=== PATIENT | female | born 1980 | race American Indian/Alaskan Native ===

== ENCOUNTER 2018-05-23 18:46 | Inpatient (IN) | payer OTHER ==
--- NOTE | 2018-05-23 18:57 | Emergency Department Report ---
Blank Doc - Documentation Documentation: This is a 37-year-old female that presents with fluttering in her chest with s hortness of breathe. PMH: HTN This initial assessment diagnostic orders/clinical plan/treatment(s) is/are subject to change based on patient's health status, clinical progression and re-assessment by fellow clinical providers in the ED. Further treatment and workup at subsequent clinical providers discretion. Patient/guardians urged not to elope from ED s their condition may be serious if not clinically assessed and managed. Initial orders include: 1-Patient sent to MAIN ED for further evaluation and treatment 2- Labs 3- EKG
[2018-05-23 19:34] LABS: Basophils # (Auto) 0.1 K/mm3 (0.0-0.1); Basophils % (Auto) 0.9 % (0.0-1.8); Eosinophils # (Auto) 0.3 K/mm3 (0.0-0.4); Eosinophils % (Auto) 4.4 % (0.0-4.3); Hematocrit 31.5 % (30.3-42.9); Hemoglobin 10.4 gm/dl (10.1-14.3); Lymphocytes # (Auto) 2.1 K/mm3 (1.2-5.4); Lymphocytes % (Auto) 36.8 % (13.4-35.0); Mean Corpuscular HGB Conc 33 % (30-34); Mean Corpuscular Volume 73 fl (79-97); Monocytes # (Auto) 0.3 K/mm3 (0.0-0.8); Monocytes % (Auto) 5.6 % (0.0-7.3); Platelet Count 379 K/mm3 (140-440); Red Blood Count 4.31 M/mm3 (3.65-5.03); Red Cell Distribution Width 18.6 % (13.2-15.2)
[2018-05-23 19:38] LABS: INR 0.89 (0.87-1.13)
[2018-05-23 19:39] LABS: Partial Thromboplastin Time 28.1 Sec. (24.2-36.6)
[2018-05-23] MEDS ORDERED: NORMODYNE IV ONE (19:46)
[2018-05-23 19:52] LABS: Albumin 3.5 g/dL (3.9-5); BUN/Creatinine Ratio 20; Blood Urea Nitrogen 10 mg/dL (7-17); Calcium 9.3 mg/dL (8.4-10.2); Hemolysis Index 12
--- NOTE | 2018-05-23 19:53 | Emergency Department Report ---
ED Chest Pain HPI - General Chief Complaint: Chest Pain Stated Complaint: FLUTTERING IN CHEST/SOB/DIZZINESS Time Seen by Provider: 05/23/18 18:46 Source: patient Mode of arrival: Ambulatory Limitations: No Limitations - History of Present Illness Initial Comments: 37-year-old female presents to the emergency department with a complaint of shortness of breath, fluttering/palpitations and some chest tightness has been going on since this morning. Patient says that it started off feeling like "I had butterflies in my chest." She denies any fever, nausea, vomiting, back pain or diaphoresis. She took a Goody[employer] powder for her symptoms without much relief. She is a tobacco smoker. No recent travel or sick contacts at home. She has a past medical history of diabetes. She says she has a history of borderline hypertension but does present with extremely elevated blood pressure through triage. Severity scale (0 -10): 0 - Related Data Home Medications Medication Instructions Recorded Confirmed Last Taken No Known Home Medications [No 05/23/18 05/23/18 Unknown Reported Home Medications] Allergies Allergy/AdvReac Type Severity Reaction Status Date / Time No Known Allergies Allergy Unverified 05/23/18 18:49 Heart Score - HEART Score History: Slightly suspicious EKG: Normal Age: < 45 Risk factors: 1-2 risk factors Troponin: < normal limit HEART Score: 1 - Critical Actions Critical Actions: 0-3 pts:0.9-1.7%risk of adverse cardiac event.Candidate for discharge ED Review of Systems ROS: Stated complaint: FLUTTERING IN CHEST/SOB/DIZZINESS Other details as noted in HPI Comment: All other systems reviewed and negative Constitutional: denies: chills, fever Eyes: denies: eye pain, vision change ENT: denies: ear pain, throat pain Respiratory: shortness of breath. denies: cough Cardiovascular: chest pain, palpitations Gastrointestinal: denies: abdominal pain, vomiting Genitourinary: denies: dysuria, discharge Musculoskeletal: denies: back pain, arthralgia Skin: denies: rash, lesions Neurological: denies: headache, weakness ED Past Medical Hx - Past Medical History Previous Medical History?: Yes Hx Diabetes: Yes - Surgical History Past Surgical History?: No - Social History Smoking Status: Current Every Day Smoker Substance Use Type: None - Medications Home Medications: Home Medications Medication Instructions Recorded Confirmed Last Taken Type No Known Home Medications [No 05/23/18 05/23/18 Unknown History Reported Home Medications] ED Physical Exam - General Limitations: No Limitations - Other Other exam information: GENERAL: The patient is well-developed well-nourished. HEENT: Normocephalic. Atraumatic. Patient has moist mucous membranes. EYES: Extraocular motions are intact. Pupils are equal and reactive to light bilaterally. NECK: Supple. Trachea is midline. CHEST/LUNGS: Clear to auscultation. There is no respiratory distress noted. HEART/CARDIOVASCULAR: Regular. There is mild tachycardia. There is no obvious murmur. ABDOMEN: Abdomen is soft, nontender. Patient has normal bowel sounds. There is no abdominal distention. SKIN: Skin is warm and dry. NEURO: The patient is awake, alert, and oriented. The patient is cooperative. The patient has no focal neurologic deficits. The patient has normal speech. MUSCULOSKELETAL: There is no tenderness or deformity. There is no limitation range of motion. There is no evidence of acute injury. ED Course Vital Signs 05/23/18 05/23/18 05/23/18 18:58 19:23 19:39 Temperature 99.2 F Pulse Rate 112 H Respiratory 18 Rate Blood Pressure 175/98 140/64 Blood Pressure 210/102 [Left] O2 Sat by Pulse 100 Oximetry 05/23/18 05/23/18 05/23/18 19:47 20:01 20:15 Temperature Pulse Rate 100 H 95 H 102 H Respiratory 17 17 12 Rate Blood Pressure 140/64 134/61 134/61 Blood Pressure [Left] O2 Sat by Pulse 100 98 Oximetry 05/23/18 05/23/18 05/23/18 20:31 20:45 21:00 Temperature Pulse Rate 93 H 102 H 106 H Respiratory 16 13 22 Rate Blood Pressure 134/61 139/76 139/76 Blood Pressure [Left] O2 Sat by Pulse 100 100 Oximetry 05/23/18 05/23/18 05/23/18 21:18 21:31 21:45 Temperature Pulse Rate 111 H 105 H Respiratory 17 24 Rate Blood Pressure 139/76 139/76 139/76 Blood Pressure [Left] O2 Sat by Pulse 100 100 Oximetry 05/23/18 05/23/18 05/23/18 22:01 22:15 22:31 Temperature Pulse Rate 96 H 88 98 H Respiratory 16 13 12 Rate Blood Pressure 139/76 155/89 155/89 Blood Pressure [Left] O2 Sat by Pulse 100 99 98 Oximetry 05/23/18 05/23/18 22:45 23:01 Temperature Pulse Rate 103 H 93 H Respiratory 13 18 Rate Blood Pressure 155/89 155/89 Blood Pressure [Left] O2 Sat by Pulse 100 100 Oximetry CAREN score - Caren Score Age > 65: (0) No Aspirin use within the Past 7 Days: (1) Yes 3 or more CAD Risk Factors: (0) No 2 or more Angina events in past 24 hrs: (1) Yes Known CAD with more than 50% Stenosis: (0) No Elevated Cardiac Markers: (0) No ST Deviation Greater than 0.5mm: (0) No CAREN Score: 2 ED Medical Decision Making - Lab Data Result diagrams: 05/23/18 19:02 05/23/18 19:02 - EKG Data -: EKG Interpreted by Me EKG shows normal: sinus rhythm, axis, intervals, QRS complexes, ST-T waves Rate: tachycardia (103 bpm) - EKG Data When compared to previous EKG there are: previous EKG unavailable Interpretation: normal EKG - Radiology Data Radiology results: report reviewed, image reviewed interpreted by me: Chest x-ray does not show any pneumothorax, pleural effusion, pneumonia or obvious focal consolidation. PROCEDURE: CT ANGIO CHEST TECHNIQUE: Computerized axial tomographic angiography of the chest and pulmonary arteries was performed after the IV injection of iodinated nonionic contrast. The image data was postprocessed using maximum intensity projection (MIP) and 2-dimensional multiplanar reformatted (MPR) techniques. The examination is specifically tailored to the evaluation of the pulmonary arteries per clinical request. HISTORY: Short of breath 786.09, chest pain 786.50, SOB, CP, elevated dimer COMPARISON: No prior studies are available for comparison. FINDINGS: Heart and pericardium: Normal. Thoracic aorta: Normal. Pulmonary vasculature: Normal. No pulmonary emboli. Lymph nodes: No enlarged thoracic lymph nodes. Lungs: Normal. Pleural space: No effusion, thickening, or pneumothorax. Musculoskeletal structures: No significant abnormality. Upper abdominal structures: No significant abnormality. IMPRESSION: Normal Examination. There is no pulmonary embolism. Transcribed By: CO Dictated By: ANALI RAGLAND MD Electronically Authenticated By: ANALI RAGLAND MD Signed Date/Time: 05/23/18 1946 - Medical Decision Making Patient presents to the emergency department with complaint of some midsternal chest pain, palpitations and shortness of breath. EKG does not show any signs of ST elevation AK or dysrhythmia. Patient does present with extremely elevated blood pressure with a systolic of greater than 200. Patient's labs are mostly unremarkable except for hyperglycemia with a blood sugar of about 450 and the patient had an elevated d-dimer. There is no elevation in her anion gap and urinalysis does not show any ketones and therefore patient is low suspicion for diabetic ketoacidosis. She was given a dose of IV insulin and her blood sugar came down to about 180. So far the patient has had negative troponins 2. Secondary to the elevated d-dimer level, a CT angiography of the chest was done that does not show any signs of any pulmonary embolism, dissection or any other acute process. The patient's symptoms have improved but she still complains of some mild chest tightness and the palpitations. For these reasons the patient will be admitted to the hospital for further evaluation and treatment was accepted for admission by the hospitalist, Dr. Parada. - Differential Diagnosis AK, PE, costochondritis, dysrhythmia Critical Care Time: No Critical care attestation.: If time is entered above; I have spent that time in minutes in the direct care of this critically ill patient, excluding procedure time. ED Disposition Clinical Impression: Hypertensive urgency, Palpitations Uncontrolled diabetes mellitus Qualifiers: Diabetes mellitus type: type 2 Glycemic state: with hyperglycemia Qualified Code(s): E11.65 - Type 2 diabetes mellitus with hyperglycemia Chest pain Qualifiers: Chest pain type: unspecified Qualified Code(s): R07.9 - Chest pain, unspecified Disposition: OP ADMIT IP TO THIS HOSP Is pt being admited?: Yes Condition: Fair Instructions: Diabetes Mellitus Type 2 in Adults (ED), Chest Pain (ED) Referrals: ANUPAMA COOPER MD [Primary Care Provider] - 3-5 Days Time of Disposition: 23:42
[2018-05-23] MEDS ORDERED: HumuLIN R IV ONE (20:01)
[2018-05-23 20:13] LABS: Alanine Aminotransferase < 5 units/L (7-56)
[2018-05-23 20:47] LABS: Bilirubin,Urine NEG (Negative); Blood,Urine NEG (Negative); Color,Urine Yellow (Yellow); Urobilinogen,Urine < 2.0 mg/dL (<2.0)
--- NOTE | 2018-05-23 21:31 | XRay Report ---
FINAL REPORT PROCEDURE: Chest. TECHNIQUE: PA and lateral views. HISTORY: Chest pain. COMPARISON: No prior studies are available for comparison. FINDINGS: The heart and mediastinum appear normal. The lungs are clear and well expanded. There are no pleural effusions. The soft tissues and regional skeleton are unremarkable. IMPRESSION: Normal study.
--- NOTE | 2018-05-23 22:15 | Cat Scan Report ---
FINAL REPORT PROCEDURE: CT ANGIO CHEST TECHNIQUE: Computerized axial tomographic angiography of the chest and pulmonary arteries was perfor med after the IV injection of iodinated nonionic contrast. The image data was postprocessed using max imum intensity projection (MIP) and 2-dimensional multiplanar reformatted (MPR) techniques. The exami nation is specifically tailored to the evaluation of the pulmonary arteries per clinical request. HISTORY: Short of breath 786.09, chest pain 786.50, SOB, CP, elevated dimer COMPARISON: No prior studies are available for comparison. FINDINGS: Heart and pericardium: Normal. Thoracic aorta: Normal. Pulmonary vasculature: Normal. No pulmonary emboli. Lymph nodes: No enlarged thoracic lymph nodes. Lungs: Normal. Pleural space: No effusion, thickening, or pneumothorax. Musculoskeletal structures: No significant abnormality. Upper abdominal structures: No significant abnormality. IMPRESSION: Normal Examination. There is no pulmonary embolism.
[2018-05-23] MEDS ORDERED: NACL 0.9% 1000 ML 1,000 ML IV ONE (22:29)
--- NOTE | 2018-05-23 23:45 | History and Physical Report ---
History of Present Illness Date of examination: 05/23/18 History of present illness: 37-year-old woman with a history of borderline hypertension, diabetes, noncompliant with medication. Last 6 months comes emergency room with complaints of chest pain and palpitation. She states she started having fluttering in her chest and chest pain started today, symptoms have been intermittent, she is on sale long it lasts for, intensity 5/10, no radiation, cannot identify exacerbating or relieving factors. Admits to shortness of breath, no nausea vomiting, diaphoresis Review of systems Constitutional: no weight loss, chills, fever Ears, eyes, nose, mouth and throat: no nasal congestion, no nasal discharge, no sinus pressure, no vision change, no red eye. Neck: No neck pain or rigidity. Cardiovascular: + palpitations, chest pain Respiratory: no cough, shortness of breath Gastrointestinal: no hematochezia, abdominal pain Genitourinary : no frequency , no hematuria Musculoskeletal: no joint swelling or muscle ache Integumentary: no rash, no pruritis Neurological: no parathesias, no focal weakness Endocrine: no cold or heat intolerance, no polyuria or polydipsia Hematologic/Lymphatic: no easy bruising, no easy bleeding, no gland swelling Allergic/Immunologic: no urticaria, no angioedema. PAST MEDICAL HISTORY: borderline hypertension, diabetes PAST SURGICAL HISTORY: None SOCIAL HISTORY: + alcohol, no drugs, smoke 5 cigarettes a day FAMILY HISTORY: Hypertension Medications and Allergies Allergies Allergy/AdvReac Type Severity Reaction Status Date / Time No Known Allergies Allergy Unverified 05/23/18 18:49 Home Medications Medication Instructions Recorded Confirmed Last Taken Type No Known Home Medications [No 05/23/18 05/23/18 Unknown History Reported Home Medications] Exam - Physical Exam Narrative exam: General Apperance: The patient lying in bed, breathing comfortable HEENT: Normocephalic, atraumatic. Pupils equally round and reactive to light, EOMI, no sclericterus or JVD or thyromegaly or nodule. , no carotid bruit, mucous membranes moist, no exudate or erythema Heart: S1-S2, regular is rhythm Lungs: Clear to auscultation bilaterally, breathing comfortable Abdomen: Positive bowel sounds, soft, nontender, nondistended, no organomegaly Extremities: No edema cyanosis clubbing Skin: no rash, nodule, warm and dry Neuro: cranial nerves 2-12 intact, speech is fluent, motor/sensory intact - Constitutional Vitals: Temp Pulse Resp BP Pulse Ox 99.2 F 93 H 18 155/89 100 05/23/18 18:58 05/23/18 23:01 05/23/18 23:01 05/23/18 23:01 05/23/18 23:01 Results - Labs CBC & Chem 7: 05/23/18 19:02 05/23/18 19:02 Labs: Abnormal lab results 05/23/18 05/23/18 05/23/18 Range/Units 19:02 19:02 19:02 MCV 73 L (79-97) fl MCH 24 L (28-32) pg RDW 18.6 H (13.2-15.2) % Lymph % (Auto) 36.8 H (13.4-35.0) % Eos % (Auto) 4.4 H (0.0-4.3) % D-Dimer 257.73 H (0-234) ng/mlDDU Sodium 132 L (137-145) mmol/L Chloride 94.7 L (98-107) mmol/L Creatinine 0.5 L (0.7-1.2) mg/dL Glucose 446 H (65-100) mg/dL POC Glucose (70-105) AST < 5 L (5-40) units/L ALT < 5 L (7-56) units/L Albumin 3.5 L (3.9-5) g/dL 05/23/18 05/23/18 Range/Units 21:21 23:03 MCV (79-97) fl MCH (28-32) pg RDW (13.2-15.2) % Lymph % (Auto) (13.4-35.0) % Eos % (Auto) (0.0-4.3) % D-Dimer (0-234) ng/mlDDU Sodium (137-145) mmol/L Chloride (98-107) mmol/L Creatinine (0.7-1.2) mg/dL Glucose (65-100) mg/dL POC Glucose 185 H 214 H (70-105) AST (5-40) units/L ALT (7-56) units/L Albumin (3.9-5) g/dL - Imaging and Cardiology EKG: image reviewed Chest x-ray: report reviewed CT scan - chest: report reviewed Assessment and Plan Assessment Hypertensive urgency Chest pain/palpitations Diabetes uncontrolled Noncompliant Plan Admit to medicine Check cardiac enzymes, stress test Start lisinopril, aspirin, DVT prophalaxis
[2018-05-23] MEDS ORDERED: D50W (25GM) Syringe IV PRN (23:50)
[2018-05-23] MEDS ORDERED: ZOFRAN IV PRN (23:50)
[2018-05-23] MEDS ORDERED: MORPHINE IV PRN (23:50)
[2018-05-23] MEDS ORDERED: SODIUM CHLORIDE FLUSH SYRINGE 10 ML IV PRN (23:50)
[2018-05-23] MEDS ORDERED: TYLENOL PO PRN (23:50)
[2018-05-24] MEDS ORDERED: NORMODYNE IV PRN (00:14)
[2018-05-24 00:22] LABS: Creatine Kinase MB 1.5 ng/mL (0.0-4.0)
[2018-05-24] MEDS ORDERED: ZESTRIL ONE (00:29)
[2018-05-24] MEDS: ZESTRIL PO SCH ×4 (00:31→18:54)
[2018-05-24 05:40] LABS: Basophils % (Auto) 0.8 % (0.0-1.8); Eosinophils # (Auto) 0.3 K/mm3 (0.0-0.4); Eosinophils % (Auto) 4.9 % (0.0-4.3); Hematocrit 28.4 % (30.3-42.9); Lymphocytes # (Auto) 2.2 K/mm3 (1.2-5.4); Lymphocytes % (Auto) 41.1 % (13.4-35.0); Mean Corpuscular HGB Conc 32 % (30-34); Mean Corpuscular Volume 75 fl (79-97); Monocytes # (Auto) 0.3 K/mm3 (0.0-0.8); Monocytes % (Auto) 6.1 % (0.0-7.3); Platelet Count 294 K/mm3 (140-440); Red Cell Distribution Width 18.2 % (13.2-15.2)
[2018-05-24 05:48] LABS: Creatine Kinase MB 1.4 ng/mL (0.0-4.0)
[2018-05-24 05:58] LABS: BUN/Creatinine Ratio 22; Blood Urea Nitrogen 11 mg/dL (7-17); Calcium 8.6 mg/dL (8.4-10.2); Hemolysis Index 16
[2018-05-24] MEDS: HumaLOG SUB-Q SCH ×4 (09:35→21:33)
[2018-05-24] MEDS: LOVENOX SUB-Q SCH (16:30)
[2018-05-24] MEDS: SODIUM CHLORIDE FLUSH SYRINGE 10 ML IV SCH ×2 (16:32→21:35)
--- NOTE | 2018-05-24 16:39 | Treadmill Report ---
The patient exercised for 6 minutes of a Vitaliy protocol, completing stage 2 and achieving 7 mets. Peak heart rate was 158 beats per minute. Peak blood pressure was 150/95. There was no chest pain. Test was stopped for fatigue. Baseline ECG was sinus rhythm. With exercise, there were no ST changes of ischemia. No significant dysrhythmias were noted. CONCLUSION: 1. Average exercise capacity. 2. No chest pain with exercise. 3. No ST changes of ischemia. 4. No significant dysrhythmias. This is a negative exercise ECG test and I have spoken with the patient. JOB# [id number] CA/NTS
[2018-05-24] MEDS ORDERED: ZESTRIL PO SCH (17:38)
--- NOTE | 2018-05-24 17:44 | Progress Note ---
Subjective Date of service: 05/24/18 Interval history: 37-year-old Mrs. Pollard admitted for hypertensive urgency and chest pain. She is alert and oriented presently complains of headache She denies any chest pain shortness of breath or palpitations, complaints of heart fluttering off-and-on Chart reviewed Assessment and plan Chest pain: WI ruled out She stress test results reviewed Normal stress thallium Hypertensive urgency: Improving Increase lisinopril to 10 mg Check TSH as the patient is complaining of fluttering Uncontrolled type 2 diabetes Start the patient on metformin and glimepiride and continue insulin sliding scale coverage Microcytic anemia-likely iron deficiency anemia Check stool for occult blood Check ferritin and iron I had extensive discussion with the patient regarding dangers of uncontrolled diabetes and hypertension Objective HEENT: Normocephalic pupils are round reacting to light throat is clear Neck supple no significant adenopathy no thyromegaly Lungs clear to auscultation Heart S1-S2 regular rate and rhythm Abdomen is soft nontender no hepatosplenomegaly Extremities there is no leg edema [employer] patient is alert and oriented 3 no focal deficit Psychiatry normal mood and affect Objective - Constitutional Vitals: Vital Signs - 12hr 05/24/18 05/24/18 05/24/18 10:59 12:38 13:40 Temperature 98.9 F Pulse Rate 85 Respiratory 20 Rate Blood Pressure 138/74 128/78 197/90 O2 Sat by Pulse 99 Oximetry 05/24/18 05/24/18 05/24/18 13:41 13:42 13:43 Temperature Pulse Rate Respiratory Rate Blood Pressure 182/92 165/86 157/87 O2 Sat by Pulse Oximetry 05/24/18 05/24/18 05/24/18 16:31 16:37 16:39 Temperature 99.1 F Pulse Rate 95 H Respiratory 20 Rate Blood Pressure 157/87 147/77 O2 Sat by Pulse 98 Oximetry - Labs CBC & Chem 7: 05/24/18 04:49 05/24/18 04:49 Labs: Abnormal lab results 05/23/18 05/23/18 05/23/18 Range/Units 19:02 19:02 19:02 Hgb (10.1-14.3) gm/dl Hct (30.3-42.9) % MCV 73 L (79-97) fl MCH 24 L (28-32) pg RDW 18.6 H (13.2-15.2) % Lymph % (Auto) 36.8 H (13.4-35.0) % Eos % (Auto) 4.4 H (0.0-4.3) % D-Dimer 257.73 H (0-234) ng/mlDDU Sodium 132 L (137-145) mmol/L Chloride 94.7 L (98-107) mmol/L Creatinine 0.5 L (0.7-1.2) mg/dL Glucose 446 H (65-100) mg/dL POC Glucose (70-105) AST < 5 L (5-40) units/L ALT < 5 L (7-56) units/L Total Creatine Kinase (30-135) units/L Albumin 3.5 L (3.9-5) g/dL 05/23/18 05/23/18 05/23/18 Range/Units 21:21 23:03 23:58 Hgb (10.1-14.3) gm/dl Hct (30.3-42.9) % MCV (79-97) fl MCH (28-32) pg RDW (13.2-15.2) % Lymph % (Auto) (13.4-35.0) % Eos % (Auto) (0.0-4.3) % D-Dimer (0-234) ng/mlDDU Sodium (137-145) mmol/L Chloride (98-107) mmol/L Creatinine (0.7-1.2) mg/dL Glucose (65-100) mg/dL POC Glucose 185 H 214 H (70-105) AST (5-40) units/L ALT (7-56) units/L Total Creatine Kinase 206 H (30-135) units/L Albumin (3.9-5) g/dL 05/24/18 05/24/18 05/24/18 Range/Units 04:49 04:49 04:49 Hgb 9.0 L (10.1-14.3) gm/dl Hct 28.4 L (30.3-42.9) % MCV 75 L (79-97) fl MCH 24 L (28-32) pg RDW 18.2 H (13.2-15.2) % Lymph % (Auto) 41.1 H (13.4-35.0) % Eos % (Auto) 4.9 H (0.0-4.3) % D-Dimer (0-234) ng/mlDDU Sodium 134 L (137-145) mmol/L Chloride (98-107) mmol/L Creatinine 0.5 L (0.7-1.2) mg/dL Glucose 291 H (65-100) mg/dL POC Glucose (70-105) AST (5-40) units/L ALT (7-56) units/L Total Creatine Kinase 192 H (30-135) units/L Albumin (3.9-5) g/dL 05/24/18 05/24/18 Range/Units 09:36 16:38 Hgb (10.1-14.3) gm/dl Hct (30.3-42.9) % MCV (79-97) fl MCH (28-32) pg RDW (13.2-15.2) % Lymph % (Auto) (13.4-35.0) % Eos % (Auto) (0.0-4.3) % D-Dimer (0-234) ng/mlDDU Sodium (137-145) mmol/L Chloride (98-107) mmol/L Creatinine (0.7-1.2) mg/dL Glucose (65-100) mg/dL POC Glucose 249 H 323 H (70-105) AST (5-40) units/L ALT (7-56) units/L Total Creatine Kinase (30-135) units/L Albumin (3.9-5) g/dL
[2018-05-24] MEDS: AMARYL PO SCH (18:55)
[2018-05-25 01:18] LABS: Iron 34 ug/dL (37-170)
[2018-05-25 01:19] LABS: Total Iron Binding Capacity 326 mcg/dL (250-450)
[2018-05-25] MEDS: HumaLOG SUB-Q SCH ×4 (08:53→21:39)
[2018-05-25] MEDS: GLUCOPHAGE PO SCH ×2 (08:53→18:10)
[2018-05-25] MEDS: AMARYL PO SCH (08:53)
[2018-05-25] MEDS: LOVENOX SUB-Q SCH (10:25)
[2018-05-25] MEDS: ZESTRIL PO SCH (10:25)
--- NOTE | 2018-05-25 18:41 | Progress Note ---
Assessment and Plan Assessment and plan: 37-year-old Mrs. Pollard admitted for hypertensive urgency and chest pain. She is alert and oriented presently complains of headache She denies any chest pain shortness of breath or palpitations, complaints of heart fluttering off-and-on Chart reviewed Assessment and plan Chest pain: AK ruled out She stress test results reviewed Normal stress thallium Hypertensive urgency:well controlled cont current antihypertensives and PRN meds Uncontrolled type 2 diabetes cont. metformin and glimepiride and continue SSC Microcytic anemia-likely iron deficiency anemia Check stool for occult blood Check ferritin and iron advised to comply with meds and diet possible dc in 1-2 days if stable History Interval history: Patient seen and examined medical records reviewed No new events reported by the nursing Patient denies chest pain or shortness of breath Stress test negative However blood sugars are uncontrolled Hospitalist Physical - Constitutional Vitals: Temp Pulse Resp BP Pulse Ox 98.5 F 89 19 154/62 99 05/25/18 15:18 05/25/18 15:18 05/25/18 15:18 05/25/18 15:18 05/25/18 15:18 General appearance: Present: no acute distress, well-nourished - EENT Eyes: Present: PERRL, EOM intact - Neck Neck: Present: supple, enlarged thyroid - Respiratory Respiratory effort: normal, labored Respiratory: bilateral: diminished, negative: rales, rhonchi, wheezing - Cardiovascular Rhythm: regular Heart Sounds: Present: S1 & S2 - Extremities Extremities: no ischemia, No edema - Abdominal General gastrointestinal: soft, non-tender, non-distended, normal bowel sounds - Integumentary Integumentary: Present: clear, warm - Psychiatric Psychiatric: appropriate mood/affect, cooperative - Neurologic Neurologic: CNII-XII intact, moves all extremities Results - Labs CBC & Chem 7: 05/24/18 04:49 05/24/18 04:49 Labs: Laboratory Last Values WBC 5.3 K/mm3 (4.5-11.0) 05/24/18 04:49 RBC 3.80 M/mm3 (3.65-5.03) 05/24/18 04:49 Hgb 9.0 gm/dl (10.1-14.3) L 05/24/18 04:49 Hct 28.4 % (30.3-42.9) L 05/24/18 04:49 MCV 75 fl (79-97) L 05/24/18 04:49 MCH 24 pg (28-32) L 05/24/18 04:49 MCHC 32 % (30-34) 05/24/18 04:49 RDW 18.2 % (13.2-15.2) H 05/24/18 04:49 Plt Count 294 K/mm3 (140-440) 05/24/18 04:49 Lymph % (Auto) 41.1 % (13.4-35.0) H 05/24/18 04:49 [place] % (Auto) 6.1 % (0.0-7.3) 05/24/18 04:49 Eos % (Auto) 4.9 % (0.0-4.3) H 05/24/18 04:49 Baso % (Auto) 0.8 % (0.0-1.8) 05/24/18 04:49 Lymph # 2.2 K/mm3 (1.2-5.4) 05/24/18 04:49 [place] # 0.3 K/mm3 (0.0-0.8) 05/24/18 04:49 Eos # 0.3 K/mm3 (0.0-0.4) 05/24/18 04:49 Baso # 0.0 K/mm3 (0.0-0.1) 05/24/18 04:49 Seg Neutrophils % 47.1 % (40.0-70.0) 05/24/18 04:49 Seg Neutrophils # 2.5 K/mm3 (1.8-7.7) 05/24/18 04:49 PT 12.6 Sec. (12.2-14.9) 05/23/18 19:02 INR 0.89 (0.87-1.13) 05/23/18 19:02 APTT 28.1 Sec. (24.2-36.6) 05/23/18 19:02 D-Dimer 257.73 ng/mlDDU (0-234) H 05/23/18 19:02 Sodium 134 mmol/L (137-145) L 05/24/18 04:49 Potassium 4.3 mmol/L (3.6-5.0) 05/24/18 04:49 Chloride 101.9 mmol/L (98-107) 05/24/18 04:49 Carbon Dioxide 22 mmol/L (22-30) 05/24/18 04:49 Anion Gap 14 mmol/L 05/24/18 04:49 BUN 11 mg/dL (7-17) 05/24/18 04:49 Creatinine 0.5 mg/dL (0.7-1.2) L 05/24/18 04:49 Estimated GFR > 60 ml/min 05/24/18 04:49 BUN/Creatinine Ratio 22 % 05/24/18 04:49 Glucose 291 mg/dL (65-100) H 05/24/18 04:49 POC Glucose 111 (70-105) H 05/25/18 16:21 Calcium 8.6 mg/dL (8.4-10.2) 05/24/18 04:49 Iron 34 ug/dL (37-170) L 05/24/18 22:32 TIBC 326 mcg/dL (250-450) 05/24/18 22:32 Ferritin 6.4 ng/mL (13.0-400.0) L 05/24/18 22:32 Total Bilirubin < 0.20 mg/dL (0.1-1.2) 05/23/18 19:02 AST < 5 units/L (5-40) L 05/23/18 19:02 ALT < 5 units/L (7-56) L 05/23/18 19:02 Alkaline Phosphatase 86 units/L (35-129) 05/23/18 19:02 Total Creatine Kinase 192 units/L (30-135) H 05/24/18 04:49 CK-MB (CK-2) 1.4 ng/mL (0.0-4.0) 05/24/18 04:49 CK-MB (CK-2) Rel Index 0.7 (0-4) 05/24/18 04:49 Troponin T < 0.010 ng/mL (0.00-0.029) 05/24/18 04:49 Total Protein 7.6 g/dL (6.3-8.2) 05/23/18 19:02 Albumin 3.5 g/dL (3.9-5) L 05/23/18 19:02 Albumin/Globulin Ratio 0.9 % 05/23/18 19:02 TSH 0.933 mlU/mL (0.270-4.200) 05/24/18 22:32 HCG, Qual Negative (Negative) 05/23/18 19: Urine Color Yellow (Yellow) 05/23/18 20: Urine Turbidity Clear (Clear) 05/23/18: Urine pH 6.0 (5.0-7.0) 05/23/18: Ur Specific [place] 1.029 (1.003-1.030) 05/23/18: Urine Protein 100 mg/dl mg/dL (Negative) 05/23/18: Urine Glucose (UA) >=500 mg/dL (Negative) 05/23/18: Urine Ketones Neg mg/dL (Negative) 05/23/18: Urine Blood Neg (Negative) 05/23/18 20: Urine Nitrite Neg (Negative) 05/23/18: Urine Bilirubin Neg (Negative) 05/23/18: Urine Urobilinogen < 2.0 mg/dL (<2.0) 05/23/18 20: Ur Leukocyte Esterase Neg (Negative) 05/23/18 20: Urine WBC (Auto) 2.0 /HPF (0.0-6.0) 05/23/18: Urine RBC (Auto) 1.0 /HPF (0.0-6.0) 05/23/18: U Epithel Cells (Auto) 7.0 /HPF (0-13.0) 05/23/18
[2018-05-26 05:00] VITALS: BP 130/69
[2018-05-26] MEDS: AMARYL PO SCH (09:26)
[2018-05-26] MEDS: ZESTRIL PO SCH (09:26)
[2018-05-26] MEDS: GLUCOPHAGE PO SCH (09:26)
[2018-05-26] MEDS: LOVENOX SUB-Q SCH (09:27)
[2018-05-26] MEDS: HumaLOG SUB-Q SCH ×2 (09:27→12:04)
[2018-05-26] MEDS: SODIUM CHLORIDE FLUSH SYRINGE 10 ML IV SCH ×2 (09:30→12:59)
--- NOTE | 2018-05-26 11:22 | Discharge Summary ---
Providers - Providers Date of Admission: 05/23/18 23:50 Date of discharge: 05/26/18 Attending physician: JESSE SANTIAGO Primary care physician: [facility], Hospitalization Reason for admission: chest pain and hypertensive urgency Condition: Stable Pertinent studies: CTA chest; no PE Stress test; negative for reversible ischemia No arrhythmia Hospital course: 37-year-old female patient with significant history of hypertension diabetes was admitted through emergency room with chest pain and palpitation, she will also noted to have hypertensive urgency Managed with multiple antihypertensiveS, pressures brought to reasonable level. Patient was evaluated admitted to the hospital , symptomatically managed, CTA chest was negative for PE, Stress test negative for ischemia, Symptoms significantly improved, Today patient is comfortable in no new complaints Vital signs stable, Physical exam is unremarkable Patient is hemodynamically and clinically stable at discharge Discharge diagnosis; --Chest pain: KS ruled out Stress test negative --Hypertensive urgency:well controlled cont current antihypertensives and PRN meds --Uncontrolled type 2 diabetes cont. metformin and glimepiride and continue SSC --Microcytic anemia-likely iron deficiency anemia Advised to see LEATHER [employer] I ASSEMBLER/GI for further evaluation and management advised to comply with meds and diet Stable at discharge Disposition: DC-01 TO HOME OR SELFCARE Time spent for discharge: 32 min Core Measure Documentation - Palliative Care Palliative Care/ Comfort Measures: Not Applicable - Core Measures Any of the following diagnoses?: none Exam - Constitutional Vitals: Temp Pulse Resp BP Pulse Ox 98.4 F 88 14 130/69 98 05/26/18 04:03 05/26/18 04:03 05/26/18 04:03 05/26/18 04:03 05/26/18 08:55 General appearance: Present: no acute distress, well-nourished, obese - EENT Eyes: Present: PERRL, EOM intact - Neck Neck: Present: supple, normal ROM - Respiratory Respiratory effort: normal Respiratory: negative: rales, rhonchi, wheezing - Cardiovascular Rhythm: regular Heart Sounds: Present: S1 & S2 - Extremities Extremities: no ischemia, No edema - Abdominal General gastrointestinal: Present: soft, non-tender, non-distended, normal bowel sounds - Integumentary Integumentary: Present: clear, warm - Musculoskeletal Musculoskeletal: strength equal bilaterally - Psychiatric Psychiatric: appropriate mood/affect, cooperative - Neurologic Neurologic: CNII-XII intact Plan Activity: no restrictions Diet: diabetic Additional Instructions: Advised to see a private straightedge worker in 1-2 weeks. Advice exercise as tolerated and weight reduction when stable Follow up with: ANUPAMA COOPER MD [Primary Care Provider] - 3-5 Days Prescriptions: Glimepiride [Amaryl] 2 mg PO QDDIAB #30 tablet Lisinopril [Zestril TAB] 10 mg PO QDAY #30 tablet metFORMIN [Glucophage] 500 mg PO BIDDIAB #60 tablet Other Discharge Orders: Glucometer (Amb) Location: None Selected Glucometer supplies[Amb] Location: None Selected
== END 2018-05-26 18:01 | disposition home or self-care (01) | DRG 305 ==
LOC: ED 18:46 → 4A 23:50
PROVIDERS: ADMIT Internal Medicine; ATTEND Internal Medicine
DX: I16.0 Hypertensive urgency (principal); R00.2 Palpitations; F17.210 Nicotine dependence, cigarettes, uncomplicated; R07.89 Other chest pain; E11.65 Type 2 diabetes mellitus with hyperglycemia; F17.200 Nicotine dependence, unspecified, uncomplicated; Z91.14 Patient's other noncompliance with medication regimen; Z82.49 Family history of ischemic heart disease and other diseases of the circulatory system
CPT/HCPCS: 36415; 71046; 71275; 80048; 80053; 81001; 82550; 82553; 82728; 82962; 83550; 84443; 84484; 84703; 85025; 85379; 85610; 85730; 93005; 93010; 93017; G0378; J1650; J1815; J7030; Q9967

== ENCOUNTER 2018-12-20 20:55 | Emergency (ER) | payer OTHER ==
--- NOTE | 2018-12-20 21:16 | Event Note ---
ED Screening Note ED Screening Note: pt states she has not had a BM states she has had a fecal impaction before abd discomfort attempted fleet enema states she began having N/V today LNMP: November 28 PMHx DM no allergies to meds This initial assessment/diagnostic orders/clinical plan/treatment(s) is/are subject to change based on patients health status, clinical progression and re- assessment by fellow clinical providers in the ED. Further treatment and workup at subsequent clinical providers discretion. Patient/guardian urged not to elope from the ED as their condition may be serious if not clinically assessed and managed. Initial orders include: labs, XR abdomen
[2018-12-20 21:51] LABS: Basophils # (Auto) 0.1 K/mm3 (0.0-0.1); Basophils % (Auto) 0.5 % (0.0-1.8); Eosinophils % (Auto) 0.4 % (0.0-4.3); Hematocrit 28.5 % (30.3-42.9); Hemoglobin 9.2 gm/dl (10.1-14.3); Lymphocytes # (Auto) 1.5 K/mm3 (1.2-5.4); Lymphocytes % (Auto) 14.4 % (13.4-35.0); Mean Corpuscular HGB Conc 32 % (30-34); Monocytes # (Auto) 0.4 K/mm3 (0.0-0.8); Monocytes % (Auto) 3.6 % (0.0-7.3); Platelet Count 383 K/mm3 (140-440); Red Blood Count 4.09 M/mm3 (3.65-5.03); Red Cell Distribution Width 19.2 % (13.2-15.2)
[2018-12-20 22:05] LABS: Mean Corpuscular Volume 70 fl (79-97)
[2018-12-20 22:13] LABS: Alanine Aminotransferase 13 units/L (7-56); Albumin 3.3 g/dL (3.9-5); BUN/Creatinine Ratio 20; Blood Urea Nitrogen 10 mg/dL (7-17); Calcium 8.6 mg/dL (8.4-10.2); Hemolysis Index 4
--- NOTE | 2018-12-20 23:02 | XRay Report ---
ABDOMEN 2 VIEW(S) INDICATION / CLINICAL INFORMATION: constipation. COMPARISON: None available. FINDINGS: TUBES / LINES: None. BOWEL GAS PATTERN/EXTRALUMINAL GAS: Large amount stool in the colon. No evidence of obstruction. No f ree air or pneumatosis identified ADDITIONAL FINDINGS: No significant additional findings. IMPRESSION: 1. Large amount stool in the colon. No appreciable obstruction or free air. Signer Name: Jf Jean MD Signed: 12/20/2018 10:58 PM Workstation Name: [id number]
[2018-12-21] MEDS ORDERED: ACETAMINOPHEN 325 MG TAB PO ONE (01:08)
[2018-12-21] MEDS ORDERED: MORPHINE 4 MG/1 ML INJ IV ONE (01:08)
[2018-12-21] MEDS ORDERED: ONDANSETRON 4 MG/2 ML INJ IV ONE (01:08)
[2018-12-21] MEDS ORDERED: SODIUM CHLORIDE 0.9% 1000 ML 2,000 ML IV ONE (01:08)
--- NOTE | 2018-12-21 01:09 | Emergency Department Report ---
ED General Adult HPI - General Chief complaint: Abdominal Pain Stated complaint: SHAKING, CANT USE THE RESTROOM, DIABETIC Time Seen by Provider: 12/20/18 21:14 Source: patient, RN notes reviewed Mode of arrival: Ambulatory Limitations: No Limitations - History of Present Illness Initial comments: This is a 38-year-old female. This patient is not known to this provider previously. The patient typically follows with the [facility] [place]. She has a past medical history of diabetes, hypertension and fecal impaction. Patient presents to the ER with a complaint of lower abdominal cramping, and sensation of fecal impaction. Positive shaking chills when she attempts to defecate. No documented fevers. No urinary symptoms. No sick contacts. She is attempted enemas [id number], which really haven't helped her out. In the ER, given Tylenol, fluids, pain medication, nausea medication and these improved her symptoms. -: Gradual, days(s) Location: pelvis Radiation: non-radiation Quality: other (cramping) Consistency: constant, now resolved Improves with: medication - Related Data Previous Rx's Medication Instructions Recorded Last Taken Type Glimepiride [Amaryl] 2 mg PO QDDIAB #30 tablet 05/26/18 Unknown Rx Lisinopril [Zestril TAB] 10 mg PO QDAY #30 tablet 05/26/18 Unknown Rx metFORMIN [Glucophage] 500 mg PO BIDDIAB #60 tablet 05/26/18 Unknown Rx Ondansetron [Zofran Odt] 4 mg PO Q8HR PRN #20 tab.rapdis 12/21/18 Unknown Rx Polyethylene Glycol 3350 [Miralax 17 gm PO QDAY #30 packet 12/21/18 Unknown Rx 3350] Allergies Allergy/AdvReac Type Severity Reaction Status Date / Time No Known Allergies Allergy Unverified 05/23/18 18:49 ED Review of Systems ROS: Stated complaint: SHAKING, CANT USE THE RESTROOM, DIABETIC Other details as noted in HPI Constitutional: chills, malaise Eyes: denies: eye discharge ENT: denies: epistaxis Respiratory: denies: wheezing Cardiovascular: denies: syncope Gastrointestinal: nausea, constipation Genitourinary: denies: dysuria Musculoskeletal: myalgia Skin: denies: lesions Neurological: weakness Psychiatric: anxiety ED Past Medical Hx - Past Medical History Hx Hypertension: Yes (leana no meds) Hx Diabetes: Yes - Social History Smoking Status: Never Smoker Substance Use Type: Alcohol - Medications Home Medications: Home Medications Medication Instructions Recorded Confirmed Last Taken Type Glimepiride [Amaryl] 2 mg PO QDDIAB #30 tablet 05/26/18 Unknown Rx Lisinopril [Zestril TAB] 10 mg PO QDAY #30 tablet 05/26/18 Unknown Rx metFORMIN [Glucophage] 500 mg PO BIDDIAB #60 tablet 05/26/18 Unknown Rx Ondansetron [Zofran Odt] 4 mg PO Q8HR PRN #20 tab.rapdis 12/21/18 Unknown Rx Polyethylene Glycol 3350 [Miralax 17 gm PO QDAY #30 packet 12/21/18 Unknown Rx 3350] ED Physical Exam - General Limitations: No Limitations General appearance: alert, anxious, obese - Head Head exam: Present: atraumatic, normocephalic - Eye Eye exam: Present: normal appearance, EOMI. Absent: nystagmus - ENT ENT exam: Present: normal exam, normal orophraynx, mucous membranes moist, normal external ear exam - Neck Neck exam: Present: normal inspection, full ROM. Absent: tenderness, meningismus - Respiratory Respiratory exam: Present: normal lung sounds bilaterally. Absent: respiratory distress - Cardiovascular Cardiovascular Exam: Present: normal rhythm, tachycardia, normal heart sounds. Absent: systolic murmur, diastolic murmur, rubs, gallop - GI/Abdominal GI/Abdominal exam: Present: soft. Absent: distended, tenderness, guarding, rigid, pulsatile mass - Extremities Exam Extremities exam: Present: normal inspection, full ROM, other (2+ pulses noted in the bilateral upper, lower extremities. Compartments soft. No long bony tenderness. The pelvis is stable.). Absent: pedal edema, joint swelling, calf tenderness - Back Exam Back exam: Present: normal inspection, full ROM. Absent: tenderness, CVA tenderness (R), CVA tenderness (L), paraspinal tenderness, vertebral tenderness - Neurological Exam Neurological exam: Present: alert, oriented X3, normal gait, other (Extraocular movements intact. Tongue midline. No facial droop. Facial sensation intact to light touch in the V1, V2, V3 distribution bilaterally. 5 and 5 strength in 4 extremities.. Sensation is intact to light touch in 4 extremities.). Absent: motor sensory deficit - Psychiatric Psychiatric exam: Present: anxious - Skin Skin exam: Present: warm, dry, intact, normal color. Absent: rash ED Course Vital Signs 12/20/18 12/21/18 21:14 03:12 Temperature 99 F Pulse Rate 115 H 93 H Respiratory 18 18 Rate Blood Pressure 160/91 Blood Pressure 143/89 [Right] O2 Sat by Pulse 100 98 Oximetry - Reevaluation(s) Reevaluation #1: 12/21/18 03:40 Differential diagnosis, including not limited to, constipation, obstruction, fecal impaction, obstipation Assessment and plan: 38-year-old female with history of a impaction, with probable recurrent constipation and fecal impaction. Had a low-grade temperature, initially tachycardic, this resolved, x-ray of the abdomen shows large stool volume, given low-grade temperature, CT scan of the abdomen and pelv is obtained to exclude emergent conditions. It is interpreted as negative. When I review the images, there does appear to be a prominent fecal load in the rectal vault. Given the patient's endorse history, especially history of fecal impaction, we will choose her empirically with a soapsuds enema. Tachycardia resolved, tolerating liquid feeds, feels improved. Reevaluation #2: 12/21/18 04:15 Patient feels improved. Walking with a steady gait. Soapsuds enema successful. Patient had a large bowel movement. She endorses readiness for discharge. ED Medical Decision Making - Lab Data Result diagrams: 12/20/18 21:12/20/18:19 Vital Signs 12/20/18 12/21/18 21:14 03:12 Temperature 99 F Pulse Rate 115 H 93 H Respiratory 18 18 Rate Blood Pressure 160/91 Blood Pressure 143/89 [Right] O2 Sat by Pulse 100 98 Oximetry Lab Results 12/20/18 12/20/18 12/20/18 Range/Units : 21: 21: WBC 10.1 (4.5-11.0) K/mm3 RBC 4.09 (3.65-5.03) M/mm3 Hgb 9.2 L (10.1-14.3) gm/dl Hct 28.5 L (30.3-42.9) % MCV 70 L (79-97) fl MCH 22 L (28-32) pg MCHC 32 (30-34) % RDW 19.2 H (13.2-15.2) % Plt Count 383 (140-440) K/mm3 Lymph % (Auto) 14.4 (13.4-35.0) % [place] % (Auto) 3.6 (0.0-7.3) % Eos % (Auto) 0.4 (0.0-4.3) % Baso % (Auto) 0.5 (0.0-1.8) % Lymph # 1.5 (1.2-5.4) K/mm3 [place] # 0.4 (0.0-0.8) K/mm3 Eos # 0.0 (0.0-0.4) K/mm3 Baso # 0.1 (0.0-0.1) K/mm3 Seg Neutrophils % 81.1 H (40.0-70.0) % Seg Neutrophils # 8.2 H (1.8-7.7) K/mm3 Sodium 136 L (137-145) mmol/L Potassium 4.1 (3.6-5.0) mmol/L Chloride 104.1 (98-107) mmol/L Carbon Dioxide 23 (22-30) mmol/L Anion Gap 13 mmol/L BUN 10 (7-17) mg/dL Creatinine 0.5 L (0.7-1.2) mg/dL Estimated GFR > 60 ml/min BUN/Creatinine Ratio 20 % Glucose 226 H (65-100) mg/dL Calcium 8.6 (8.4-10.2) mg/dL Total Bilirubin 0.20 (0.1-1.2) mg/dL AST 16 (5-40) units/L ALT 13 (7-56) units/L Alkaline Phosphatase 61 (35-129) units/L Total Protein 7.3 (6.3-8.2) g/dL Albumin 3.3 L (3.9-5) g/dL Albumin/Globulin Ratio 0.8 % Lipase 33 (13-60) units/L HCG, Qual Negative (Negative) - EKG Data -: EKG Interpreted by Fl EKG shows normal: sinus rhythm Rate: normal - EKG Data When compared to previous EKG there are: previous EKG unavailable 12/21/18 03:43 There is no prior EKG available for comparison. This is a sinus rhythm, 90 bpm, no axis, QTC is 449 ms, there is no prior for comparison, the EKG is not consistent with ST elevation myocardial infarction. - Radiology Data Radiology results: pending, report reviewed, image reviewed Print Report Referring Physician: ENOC MIRZA Patient Name: MARIIA MARIE Date of : 1980 Sex: Female Report Date: 2018-12-21 Report Status: Finalized Findings [facility] [address] [id number] Cat Scan Report Signed Patient: MARIIA MARIE MR#: [id number] : 1980 Acct:[id number] Age/Sex: 38 / F ADM Date: 12/20/18 Loc: ED Attending Dr: Ordering Physician: ENOC MIRZA MD Date of Service: 12/21/18 Procedure(s): CT abdomen pelvis w con Accession Number(s): [id number] cc: ENOC MIRZA MD CT ABDOMEN AND PELVIS WITH CONTRAST HISTORY: Lower abdominal pain and constipation COMPARISON: None TECHNIQUE: Routine abdominal and pelvic CT exam performed with 100 mL IV Omnipaque 300. All CT scans at this location are performed using CT dose reduction for ALARA by means of automated exposure control. FINDINGS: CT ABDOMEN: Lung Bases: No significant abnormality. Liver: Tiny cysts without acute abnormality. Biliary: No significant abnormality. Spleen: No significant abnormality. Unenlarged. Pancreas: No significant abnormality. Adrenals: No significant abnormality. Kidneys: No significant abnormality. Lymphatics: No lymphadenopathy. Vasculature: No significant a bnormality. Bowel/Peritoneum: No significant abnormality. No free air. No free fluid. Normal appendix. Overall normal volume of stool in the colon. CT PELVIC: : No significant abnormality. The uterus and ovaries appear normal for age. Lymphatics: No lymphadenopathy. Osseous Structures: No aggressive appearing osseous lesions. Additional Findings: None IMPRESSION: 1. No acute or concerning abnormality in the abdomen and pelvis. The volume of stool in the colon appears relatively normal. Signer Name: Jf Jean MD Signed: 12/21/2018 2:07 AM Workstation Name: [id number] Transcribed By: BRITTA Dictated By: Jf Jean MD Electronically Authenticated By: Jf Jean MD Signed Date/Time: 12/21/18 0207 Print Report Referring Physician: JAKE BYERS Patient Name: MARIIA MARIE Date of : 1980 Sex: Female Report Date: 2018-12-20 Report Status: Finalized Findings [facility] [address] [id number] XRay Report Signed Patient: MARIIA MARIE MR#: [id number] : 1980 Acct:[id number] Age/Sex: 38 / F ADM Date: 12/20/18 Loc: ED Attending Dr: Ordering Physician: KYA LEW Date of Service: 12/20/18 Procedure(s): XR abdomen 2V Accession Number(s): [id number] cc: KYA LEW Fluoro Time In Minutes: ABDOMEN 2 VIEW(S) INDICATION / CLINICAL INFORMATION: constipation. COMPARISON: None available. FINDINGS: TUBES / LINES: None. BOWEL GAS PATTERN/EXTRALUMINAL GAS: Large amount stool in the colon. No evidence of obstruction. No free air or pneumatosis identified ADDITIONAL FINDINGS: No significant additional findings. IMPRESSION: 1. Large amount stool in the colon. No appreciable obstruction or free air. Signer Name: Jf Jean MD Signed: 12/20/2018 10:58 PM Workstation Name: [id number] Transcribed By: BRITTA Dictated By: Jf Jean MD Electronically Authenticated By: Jf Jean MD Signed Date/Time: 12/20/18 3143 Critical care attestation.: If time is entered above; I have spent that time in minutes in the direct care of this critically ill patient, excluding procedure time. ED Disposition Clinical Impression: Constipation Disposition: DC-01 TO HOME OR SELFCARE Is pt being admited?: No Does the pt Need Aspirin: No Condition: Stable Instructions: Constipation (ED), High Fiber Diet (ED) Additional Instructions: Do not take metformin medication for the next 2 days. Drink 4-6 cups of water per day for the next 5-7 days. Take the MiraLAX medication is needed/directed. Eat plenty of fiber, vegetables, lean protein. Take nausea medication as needed and directed. Return to the emergency room right away with new, worsening or different symptoms, or symptoms not present on the initial emergency room evaluation. Prescriptions: Polyethylene Glycol 3350 [Miralax 3350] 17 gm PO QDAY #30 packet Ondansetron [Zofran Odt] 4 mg PO Q8HR PRN #20 tab.rapdis PRN Reason: Nausea Referrals: PRIMARY CARE, [Primary Care Provider] - 3-5 Days
--- NOTE | 2018-12-21 02:11 | Cat Scan Report ---
CT ABDOMEN AND PELVIS WITH CONTRAST HISTORY: Lower abdominal pain and constipation COMPARISON: None TECHNIQUE: Routine abdominal and pelvic CT exam performed with 100 mL IV Omnipaque 300. All CT scans at this location are performed using CT dose reduction for ALARA by means of automated exposure contr ol. FINDINGS: CT ABDOMEN: Lung Bases: No significant abnormality. Liver: Tiny cysts without acute abnormality. Biliary: No significant abnormality. Spleen: No significant abnormality. Unenlarged. Pancreas: No significant abnormality. Adrenals: No significant abnormality. Kidneys: No significant abnormality. Lymphatics: No lymphadenopathy. Vasculature: No significant abnormality. Bowel/Peritoneum: No significant abnormality. No free air. No free fluid. Normal appendix. Overall no rmal volume of stool in the colon. CT PELVIC: : No significant abnormality. The uterus and ovaries appear normal for age. Lymphatics: No lymphadenopathy. Osseous Structures: No aggressive appearing osseous lesions. Additional Findings: None IMPRESSION: 1. No acute or concerning abnormality in the abdomen and pelvis. The volume of stool in the colon roslyn ears relatively normal. Signer Name: Jf Jean MD Signed: 12/21/2018 2:07 AM Workstation Name: [id number]
[2018-12-21 03:13] VITALS: BP 143/89
[2018-12-21 03:43] LABS: Bilirubin,Urine NEG (Negative); Blood,Urine NEG (Negative); Color,Urine Yellow (Yellow); Mucus,Urine FEW /HPF; Urobilinogen,Urine < 2.0 mg/dL (<2.0)
[2018-12-21 03:45] LABS: Protein,Urine >500 mg/dL (Negative)
== END 2018-12-21 04:51 | disposition home or self-care (01) ==
LOC: ED 20:55
DX: K59.00 Constipation, unspecified (principal); R11.10 Vomiting, unspecified; I10 Essential (primary) hypertension; E11.9 Type 2 diabetes mellitus without complications; Z79.84 Long term (current) use of oral hypoglycemic drugs; Z79.899 Other long term (current) drug therapy
CPT/HCPCS: 36415; 74019; 74177; 80053; 81001; 83690; 84703; 85025; 93005; 93010; 96374; 96375; 99285; J2270; J2405; J7030; Q9967